=== PATIENT | female | born 1970 | race Caucasian/White ===

== ENCOUNTER → 2016-09-18 | Outpatient (CLI) | payer BC | LOC: OD 15:02 | PROVIDERS: ATTEND Student in an Organized Health Care Education/Training Program | DX: M54.5 Low back pain (principal) | CPT/HCPCS: 72110 ==

== ENCOUNTER → 2017-05-06 | Outpatient (CLI) | payer BC ==
--- NOTE | 2017-05-06 14:45 | RADIOLOGY REPORT (SQ) ---
EXAM DESCRIPTION: MRI LUMBAR SPINE WITHOUT COMPLETED DATE/TIME: 05/06/2017 9:40 am REASON FOR STUDY: LOW BACK PAIN (M54.5) M54.5 LOW BACK PAIN COMPARISON: None. TECHNIQUE: Sagittal and Axial imaging includes T1, T2, STIR and gradient echo sequences. Coronal T2/ HASTE imaging. LIMITATIONS: None. FINDINGS: VISUALIZED UPPER ABDOMEN: Limited evaluation. No acute or suspicious findings suggested. SEGMENTATION: No transitional anatomy. The lowest well-developed disc space is labeled L5-S1. ALIGNMENT: Anatomic. VERTEBRAE: Intact. BONE MARROW: Normal. No marrow replacement or reactive changes. DISC SIGNAL: Normal. No significant abnormal signal or loss of height. POSTERIOR ELEMENTS: Generally intact. No pars defect evident. HARDWARE: None in the spine. CORD AND CONUS: Normal in size and signal intensity. Conus at the appropriate level. SOFT TISSUES: No aortic aneurysm seen. No bulky retroperitoneal adenopathy or mass. No paraspinal mas s or fluid. L1-L2: No significant spinal stenosis or exit foraminal stenosis. L2-L3: No significant spinal stenosis or exit foraminal stenosis. L3-L4: No significant spinal stenosis or exit foraminal stenosis. L4-L5: No significant spinal stenosis or exit foraminal stenosis. L5-S1: No significant spinal stenosis or exit foraminal stenosis. LOWER THORACIC: Incompletely imaged. No stenosis seen. SACRUM: Visualized upper sacrum intact. OTHER: No other significant findings. IMPRESSION: NORMAL MRI LUMBAR SPINE. TECHNICAL DOCUMENTATION: JOB ID: [id number] [employer]- All Rights Reserved
== END ==
LOC: RAD 08:58
PROVIDERS: ATTEND Student in an Organized Health Care Education/Training Program
DX: M54.5 Low back pain (principal)
CPT/HCPCS: 72148

== ENCOUNTER → 2017-06-18 | Outpatient (CLI) | payer BC ==
--- NOTE | 2017-06-18 08:59 | RADIOLOGY REPORT (SQ) ---
EXAM DESCRIPTION: MRI RT UPPER JOINT WITHOUT COMPLETED DATE/TIME: 06/18/2017 8:06 am REASON FOR STUDY: LATERAL EPICONDYLITIS, RIGHT ELBOW (M77.11) M77.11 LATERAL EPICONDYLITIS, RIGHT E LBOW COMPARISON: None. TECHNIQUE: Right elbow images acquired and stored on PACS. Multiplanar images to include fat sensit florecita sequences as T1, fluid sensitive sequences as T2/STIR, cartilage sensitive sequences as FSPD, and gradient echo sequences. LIMITATIONS: None. FINDINGS: BONE MARROW: Old avulsion fracture of the coronoid process. No marrow edema. JOINT EFFUSION: None noted. No loose bodies. ARTICULAR SURFACES: Normal. MEDIAL COLLATERAL LIGAMENT COMPLEX: Intact without edema or tear. MEDIAL EPICONDYLE AND COMMON FLEXOR TENDON: No tendinopathy. No partial or full-thickness tear. LATERAL COLLATERAL LIGAMENT: Partial tear of the humeral attachment of the radial collateral ligament . LATERAL EPICONDYLE AND COMMON EXTENSOR TENDON: Increased signal in the origin of the common extensor tendon. LATERAL ULNAR COLLATERAL LIGAMENT: Intact without evidence for tear. BICEPS TENDON: Intact. No partial or full-thickness tendon tear. No muscle edema. TRICEPS TENDON: Intact. ULNAR NERVE: Well-visualized without edema or encroachment. ADJACENT SOFT TISSUES: No masses or edema. OTHER: No other significant finding. IMPRESSION: 1. Tendinopathy origin of the common extensor tendon. Partial tear of the humeral attachment of the radial collateral ligament. 2. Old avulsion fracture of the coronoid process. TECHNICAL DOCUMENTATION: JOB ID: [id number] [employer]- All Rights Reserved
== END ==
LOC: RAD 07:23
PROVIDERS: ATTEND Physician Assistant
DX: M77.11 Lateral epicondylitis, right elbow (principal)

== ENCOUNTER → 2017-08-27 | Outpatient (CLI) | payer BC ==
--- NOTE | 2017-08-28 08:34 | RADIOLOGY REPORT (SQ) ---
EXAM DESCRIPTION: MRI RT LOWER EXTREMITY WITHOUT COMPLETED DATE/TIME: 08/27/2017 6:53 pm REASON FOR STUDY: PAIN IN RIGHT FOOT M79.671 PAIN IN RIGHT FOOT COMPARISON: None. TECHNIQUE: T1-weighted, T2-weighted, and gradient echo noncontrast multiplanar imaging of the right foot. LIMITATIONS: None. FINDINGS: MARROW SIGNAL: No marrow signal alteration. No occult fracture. No evidence for osteo ne crosis. JOINT EFFUSION: No significant effusions. PLANTAR FASCIA: Normal as visualized. TARSOMETATARSAL AND TOE ARTICULATIONS: Anatomic. Mild degenerative changes first metatarsal phalange al joint. INTERMETATARSAL SPACES AND PLANTAR PLATES: Intact. No soft tissue mass to suggest a neuroma. SOFT TISSUES: Mild intermediate T1 signal in the fat pad underlying the 5th MP joint, likely scar nelson suring up to 1.8 cm transverse dimension. This does not look like fluid or edema. No adjacent bone pathology. There is also a mild 1.4 cm hyperintense T2 lobulated mass along the base of the 5th meta tarsal dorsally. Probably a tiny ganglion. OTHER: No other significant finding. IMPRESSION: 1. No fracture or significant marrow edema. No subluxation or dislocation. 2. Soft ti ssue findings as above. TECHNICAL DOCUMENTATION: JOB ID: [id number] [employer]- All Rights Reserved
== END ==
LOC: RAD 18:04
PROVIDERS: ATTEND Podiatrist Foot Surgery
DX: M79.671 Pain in right foot (principal)

== ENCOUNTER → 2017-10-28 | Outpatient (CLI) | payer BC, OTHER ==
--- NOTE | 2017-10-30 07:17 | RADIOLOGY REPORT (SQ) ---
EXAM DESCRIPTION: MRI LT UPPER JOINT WITHOUT COMPLETED DATE/TIME: 10/28/2017 6:44 pm REASON FOR STUDY: M77.12 LATERAL EPICONDYLITIS, LEFT ELBOW M77.12 LATERAL EPICONDYLITIS, LEFT ELBOW COMPARISON: None. TECHNIQUE: Left elbow images acquired and stored on PACS. Multiplanar images to include fat sensitiv e sequences as T1, fluid sensitive sequences as T2/STIR, cartilage sensitive sequences as FSPD, and g radient echo sequences. LIMITATIONS: None. FINDINGS: BONE MARROW: No alteration of signal to suggest marrow replacement or edema. No occult fra cture. No large osteophytes. JOINT EFFUSION: Small effusion without loose bodies. ARTICULAR SURFACES: Relatively maintained. Very subtle subchondral changes in the capitellum. This may represent minimal focal chondral loss. MEDIAL COLLATERAL LIGAMENT COMPLEX: Intact without edema or tear. MEDIAL EPICONDYLE AND COMMON FLEXOR TENDON: No tendinopathy. No partial or full-thickness tear. LATERAL COLLATERAL LIGAMENT: Partial tear. This looks relatively high-grade. LATERAL EPICONDYLE AND COMMON EXTENSOR TENDON: Partial tear along the origin of the common extensor t endon. LATERAL ULNAR COLLATERAL LIGAMENT: Relatively intact. BICEPS TENDON: Intact. No partial or full-thickness tendon tear. No muscle edema. TRICEPS TENDON: Intact. ULNAR NERVE: Mildly thickened appearance, hyperintense signal with loss of the perineural fat in the region of the cubital tunnel. Note is made of mild spurring in the adjacent olecranon with minimal m arrow edema. ADJACENT SOFT TISSUES: No masses or edema. OTHER: No other significant finding. IMPRESSION: 1. Significant lateral epicondylitis, partial tear of the lateral collateral ligament a nd origin of the common extensor tendon. The lateral ulnar collateral ligament looks relatively main tained. 2. Findings worrisome for ulnar neuropathy. TECHNICAL DOCUMENTATION: JOB ID: [id number] [employer]- All Rights Reserved Reading location - IP/workstation name: [email or web address]
== END ==
LOC: RAD 16:11
PROVIDERS: ATTEND Orthopaedic Surgery
DX: M77.12 Lateral epicondylitis, left elbow (principal)

== ENCOUNTER 2018-02-26 06:41 | Day surgery (SDC) | payer BC, OTHER ==
[~2018-02-26 06:41] MED LIST: CEFAZOLIN 1 GM/D5W RTU 1 GM/50 ML RTUPB IV PRN
[2018-02-26] MEDS ORDERED: LIDOCAINE 2% INJ (20 MG/ML) 20 ML MDV ONE (07:17)
[2018-02-26] MEDS ORDERED: NORMAL SALINE INJ/PF 0.9% 10 ML SDV ONE (07:18)
[2018-02-26] MEDS ORDERED: POLYMYXIN B SULFATE INJ 500000 UNIT VIAL ONE (07:18)
[2018-02-26] MEDS ORDERED: BUPIVACAINE HCL 0.5 % INJ/PF 30 ML SDV ONE (07:18)
[2018-02-26] MEDS ORDERED: BACITRACIN INJ 50,000 UNIT VIAL ONE (07:18)
[2018-02-26] MEDS ORDERED: MIDAZOLAM 2 MG/2 ML INJ ONE (07:21)
[2018-02-26] MEDS ORDERED: FENTANYL CITRATE INJ/PF 100 MCG/2 ML AMPUL ONE (07:21)
[2018-02-26] MEDS ORDERED: DEXMEDETOMIDINE INJ 80 MCG/20 ML VIAL IV ONE (07:22)
[2018-02-26] MEDS ORDERED: PROPOFOL INJ 200 MG/20 ML VIAL IV ONE (07:22)
[2018-02-26] MEDS ORDERED: LIDOCAINE 0.5% INJ-PF (5 MG/ML) 50 ML SDV ONE (07:23)
[2018-02-26] MEDS: BUPIVACAINE INJ/PF LIPOSOME/PF 266 MG/20 ML SDV ONE ×2 (08:48→08:55)
--- NOTE | 2018-02-26 10:00 | SURGICARE DISCHARGE SUMMARY E ---
[facility] Discharge Summary NAME: BRYSON WALKER AGE: 47Y ADMITTED: 02/26/2018 DISCHARGED: 02/26/2018 PROCEDURE: Correction of bunion via osteotomy, internal fixation right foot. POSTOPERATIVE DIAGNOSIS: HALLUX ABDUCTOVALGUS RIGHT FOOT. SURGEON: Leilani Gaxiola DPM FINAL INSPECTION SUPERVISOR: Toi De Oliveira DPM HOSPITAL COURSE: The patient was admitted to [facility] with a chief complaint of a painful bunion on her right foot. She has undergone conservative treatment without any cessation of her symptoms and the patient desired to have the problem surgically corrected. The underwent the above surgical procedure without any complications and was transferred to the recovery room. She was discharged with a surgical shoe, ice pack, postoperative instructions including no weightbearing on the surgical foot for the first week. Postoperative prescription for cephalexin 500 mg #4. She was given a followup appointment in the doctor's office in 1 week. The patient was discharged from [facility]. DICTATING PHYSICIAN: GABINO GAXIOLA D.P.M. [id number] PHY#: [id number] ID: [id number] JOB#: [id number] ACCT: [id number] cc:GABINO GAXIOLA DPM >
--- NOTE | 2018-02-26 10:15 | SURGICARE OPERATIVE REPORT E ---
[facility] NAME: BRYSON WALKER AGE: 47Y DATE OF SURGERY: 02/26/2018 ROOM: PREOPERATIVE DIAGNOSIS: HALLUX ABDUCTOVALGUS, RIGHT FOOT. POSTOPERATIVE DIAGNOSIS: HALLUX ABDUCTOVALGUS, RIGHT FOOT. OPERATION: Correction of bunion by Chinedu osteotomy with internal fixation, right foot. SURGEON: GABINO HARDEN DPM CUTTER GRINDER OPERATOR: Toi De Oliveira DPM PROCEDURE: Following the induction of IV regional local anesthesia, the right foot and leg were prepped and draped in a sterile manner. A pneumatic tourniquet was placed around the right ankle and inflated to 250 mmHg, after exsanguination of the limb via Esmarch bandage. The following surgical procedures were then performed: Correction of bunion by Chinedu osteotomy with internal fixation, right foot. Attention was directed to the dorsal aspect of the first metatarsophalangeal joint of the right foot, where an approximately 5-cm dorsolinear incision was made. The incision was deepened via sharp dissection. All bleeders were clamped and Bovied at the site for the purposes of hemostasis. A capsular incision was made in the same manner as the original skin incision and was made medial to the extensor hallucis longus tendon. The capsule was then reflected medially and laterally from the bone. Attention was then directed to the first interspace, where utilizing blunt dissection, the transverse adductor tendon was identified and sharply incised with tenotomy scissors. Attention was then directed back to the medial aspect of the first metatarsal head, utilizing a sharp sagittal saw, hypertrophied medial eminence was osteotomized parallel to the long axis of the bone and removed in total from the wound. An Chinedu osteotomy was then performed to the medial aspect of the first metatarsal head. This was done via a Mangstor sagittal saw. There was 2 wings, one distal, one dorsal, and one plantar. Both had 60 degrees, the apex being distal. The plantar wing was a short wing, while the dorsal wing was a longer wing. The capital fragment was then shifted laterally on the first metatarsal, approximately 5-mm. The osteotomy was then temporarily fixated with a 0.45 Guidewire. An x-ray was taken to make sure that the wire was in a good position and that the first metatarsophalangeal joint was now in a more anatomically corrected position. A reamer measure was sent through down the Guidewire and the hole was reamed to accept the head of the screw and was noted a 22-mm 3.0 cancellous screw would be needed. The distal aspect of the osteotomy was then drilled utilizing a 2.0-mm drill bit. The 22-mm 3.0 cancellous screw was slid down the guidewire and tightened down until the osteotomy was safely fixated. The guidewire was then removed. Another x-ray was taken to make sure that the screw was long enough and in a good position and the first metatarsophalangeal joint was still in an anatomically correct position. The redundant bone in the medial aspect of the first metatarsal head was then osteotomized parallel to the long axis of the bone, utilizing a Mangstor sagittal saw. The site was then rasped smooth utilizing a Mangstor cross-cut rasp. The area was then flushed with copious amounts of an antibacterial saline solution. Bone wax was then applied to the medial aspect of the first metatarsal head. The capsule was then coapted and maintained utilizing simple interrupted sutures of 3-0 Vicryl. The extensor hallucis longus tendon was then lengthened via a Z-plasty tendon lengthening and was sutured with a running locking stitch of 3.0 FiberWire. The tendon was then tacked medially utilizing simple interrupted sutures of 3-0 Vicryl. The subcutaneous tissue is then coapted and maintained utilizing simple interrupted sutures of 4-0 Vicryl. Then 20 mL of EXPAREL was then injected along the subcutaneous along the length of the incision and around the surgical site. The skin was then coapted and maintained utilizing a running subcuticular suture of 5-0 Vicryl. The skin was then cleansed utilizing an alcohol foam. Then Benzoin applied along the length of the incision and 1/8-inch Steri-Strips were applied along the length of the incision. A dry sterile dressing was then applied, consisting of Colin silk, 4 x 4's, Conform, Kerlix and Coban. The pneumatic tourniquet was released. It was noted that all digits were warm and viable. The patient was then transferred to the recovery room DICTATING PHYSICIAN: GABINO HARDEN D.P.M. [id number] PHY#: [id number] ID: [id number] JOB#: [id number] ACCT: [id number] cc:GABINO HARDEN DPM >
--- NOTE | 2018-02-26 11:57 | RADIOLOGY REPORT (SQ) ---
EXAM DESCRIPTION: NO CHG FLUORO; FOOT RIGHT 2 VIEWS COMPLETED DATE/TIME: 02/26/2018 11:40 am REASON FOR STUDY: RT FOOT BUNIONECTOMY M20.11 HALLUX VALGUS (ACQUIRED), RIGHT FOOT COMPARISON: None. FLUOROSCOPY TIME: 8 seconds 2 images saved to PACS. TECHNIQUE: Intra-operative images acquired during surgical procedure to evaluate progress. NUMBER OF IMAGES: 2 LIMITATIONS: None. FINDINGS: 2 images of great toe (not labeled as to left or right). Patient undergoing bunionectomy and corrective osteotomy with single screw in place. Please correlate with operative note. IMPRESSION: IMAGE(S) OBTAINED DURING PROCEDURE. COMMENT: Quality ID [id number]: Final reports for procedures using fluoroscopy that document radiation exp osure indices, or exposure time and number of fluorographic images (if radiation exposure indices are not available) Please consult full operative report of the attending physician for description of the procedure. TECHNICAL DOCUMENTATION: JOB ID: [id number] [employer]- All Rights Reserved Reading location - IP/workstation name: [email or web address]
--- NOTE | 2018-02-26 11:57 | RADIOLOGY REPORT (SQ) ---
EXAM DESCRIPTION: NO CHG FLUORO; FOOT RIGHT 2 VIEWS COMPLETED DATE/TIME: 02/26/2018 11:40 am REASON FOR STUDY: RT FOOT BUNIONECTOMY M20.11 HALLUX VALGUS (ACQUIRED), RIGHT FOOT COMPARISON: None. FLUOROSCOPY TIME: 8 seconds 2 images saved to PACS. TECHNIQUE: Intra-operative images acquired during surgical procedure to evaluate progress. NUMBER OF IMAGES: 2 LIMITATIONS: None. FINDINGS: 2 images of great toe (not labeled as to left or right). Patient undergoing bunionectomy and corrective osteotomy with single screw in place. Please correlate with operative note. IMPRESSION: IMAGE(S) OBTAINED DURING PROCEDURE. COMMENT: Quality ID [id number]: Final reports for procedures using fluoroscopy that document radiation exp osure indices, or exposure time and number of fluorographic images (if radiation exposure indices are not available) Please consult full operative report of the attending physician for description of the procedure. TECHNICAL DOCUMENTATION: JOB ID: [id number] [employer]- All Rights Reserved Reading location - IP/workstation name: [email or web address]
== END 2018-02-26 10:19 | disposition home or self-care (01) ==
LOC: SC 06:41
PROVIDERS: ATTEND Podiatrist Foot Surgery
PROC: 0QBN0ZZ Excision of Right Metatarsal, Open Approach (ICD-10-PCS; 2018-02-26)
PROC: 0QSN04Z Reposition Right Metatarsal with Internal Fixation Device, Open Approach (ICD-10-PCS; principal; 2018-02-26 07:30)
DX: M20.11 Hallux valgus (acquired), right foot (principal); F32.9 Major depressive disorder, single episode, unspecified; J45.909 Unspecified asthma, uncomplicated; Z87.891 Personal history of nicotine dependence
CPT/HCPCS: 73620; 28296; C1713; C1769; J2250; J3490 ×7; J0690; J3010; J2704; C9290; 01480

== ENCOUNTER → 2018-12-17 | Outpatient (CLI) | payer BC ==
--- NOTE | 2018-12-17 18:07 | RADIOLOGY REPORT (SQ) ---
EXAM DESCRIPTION: MRI LUMBAR SPINE WITHOUT COMPLETED DATE/TIME: 12/17/2018 5:35 pm REASON FOR STUDY: M51.36 OTHER INTERVERTEBRAL DISC DEGENERATION, LUMBAR REGION M51.36 OTHER INTERVE RTEBRAL DISC DEGENERATION, LUMBAR REGION COMPARISON: None. TECHNIQUE: Sagittal and Axial imaging includes T1, T2, STIR and gradient echo sequences. Coronal T2/ HASTE imaging. LIMITATIONS: Up to moderately limited by motion artifact. FINDINGS: VISUALIZED UPPER ABDOMEN: Limited evaluation. No acute or suspicious findings suggested. SEGMENTATION: No transitional anatomy. The lowest well-developed disc space is labeled L5-S1. ALIGNMENT: Anatomic. VERTEBRAE: Intact. BONE MARROW: Normal. No marrow replacement or reactive changes. DISC SIGNAL: Normal. No significant abnormal signal or loss of height. POSTERIOR ELEMENTS: Generally intact. No pars defect evident. HARDWARE: None in the spine. CORD AND CONUS: Normal in size and signal intensity. Conus at the appropriate level. SOFT TISSUES: No aortic aneurysm seen. No bulky retroperitoneal adenopathy or mass. No paraspinal mas s or fluid. L1-L2: No significant spinal stenosis or exit foraminal stenosis. L2-L3: No significant spinal stenosis or exit foraminal stenosis. L3-L4: No significant spinal stenosis or exit foraminal stenosis. L4-L5: No significant spinal stenosis or exit foraminal stenosis. L5-S1: No significant spinal stenosis or exit foraminal stenosis. LOWER THORACIC: Incompletely imaged. No stenosis seen. SACRUM: Visualized upper sacrum intact. OTHER: No other significant findings. IMPRESSION: 1. Limiting motion. 2. No gross spinal malalignment, fracture or bone lesion or significant spinal stenosis detected. TECHNICAL DOCUMENTATION: JOB ID: [id number]- All Rights Reserved Reading location - IP/workstation name: [email or web address]
== END ==
LOC: RAD 16:34
PROVIDERS: ATTEND Pain Medicine Interventional Pain Medicine
DX: M51.36 Other intervertebral disc degeneration, lumbar region (principal)
CPT/HCPCS: 72148

== ENCOUNTER → 2019-06-25 | Outpatient (CLI) | payer BC ==
--- NOTE | 2019-06-25 14:07 | RADIOLOGY REPORT (SQ) ---
EXAM DESCRIPTION: MRI LUMBAR SPINE WITHOUT COMPLETED DATE/TIME: 06/25/2019 10:49 am REASON FOR STUDY: UNSPECIFIED INFLAMMATORY SPONDYLOPATHY, LUMBAR REGION M46.96 UNSPECIFIED INFLAMMA TORY SPONDYLOPATHY, LUMBAR REGION COMPARISON: None. TECHNIQUE: Sagittal and Axial imaging includes T1, T2, STIR and gradient echo sequences. Coronal T2/ HASTE imaging. LIMITATIONS: None. FINDINGS: VISUALIZED UPPER ABDOMEN: Limited evaluation. No acute or suspicious findings suggested. SEGMENTATION: No transitional anatomy. The lowest well-developed disc space is labeled L5-S1. ALIGNMENT: Anatomic. VERTEBRAE: Intact. BONE MARROW: Normal. No marrow replacement or reactive changes. DISC SIGNAL: Normal. No significant abnormal signal or loss of height. POSTERIOR ELEMENTS: Generally intact. No pars defect evident. HARDWARE: None in the spine. CORD AND CONUS: Normal in size and signal intensity. Conus at the L1 level. SOFT TISSUES: No aortic aneurysm seen. No bulky retroperitoneal adenopathy or mass. No paraspinal mas s or fluid. L1-L2: No significant spinal stenosis or exit foraminal stenosis. L2-L3: No significant spinal stenosis or exit foraminal stenosis. L3-L4: Circumferential disc bulging. No central canal or foraminal stenosis. L4-L5: No significant spinal stenosis or exit foraminal stenosis. L5-S1: No significant spinal stenosis or exit foraminal stenosis. LOWER THORACIC: Incompletely imaged. No stenosis seen. SACRUM: Visualized upper sacrum intact. OTHER: No other significant findings. IMPRESSION: There is circumferential disc bulging at L3-4 with no significant central canal or malcolm inal stenosis. TECHNICAL DOCUMENTATION: JOB ID: [id number] [employer]- All Rights Reserved Reading location - IP/workstation name: [email or web address]
== END ==
LOC: RAD 10:02
PROVIDERS: ATTEND Pain Medicine Interventional Pain Medicine
DX: M46.96 Unspecified inflammatory spondylopathy, lumbar region (principal); M51.86 Other intervertebral disc disorders, lumbar region
CPT/HCPCS: 72148

== ENCOUNTER 2020-01-05 11:35 | Emergency (ER) | payer BC ==
[2020-01-05 12:01] LABS: APPEARANCE,URINE CLEAR; BILIRUBIN,URINE NEGATIVE (NEGATIVE); COLOR,URINE STRAW; GLUCOSE, URINE NEGATIVE (NEGATIVE); KETONES,URINE NEGATIVE (NEGATIVE); LEUKOCYTE ESTERASE,URINE NEGATIVE (NEGATIVE); NITRITE,URINE NEGATIVE (NEGATIVE); PROTEIN,URINE NEGATIVE (NEGATIVE); URINE SPECIFIC GRAVITY 1.006; UROBILINOGEN,URINE NEGATIVE mg/dL (<2.0)
[2020-01-05 12:12] LABS: ABSOLUTE BASOPHILS # (AUTO) 0.1 10^3/uL (0.0-0.2); ABSOLUTE EOSINOPHILS # (AUTO) 0.5 10^3/uL (0.0-0.6); ABSOLUTE LYMPHOCYTES (AUTO) 2.9 10^3/uL (0.5-4.7); ABSOLUTE NEUT (AUTO) 5.4 10^3/uL (1.7-8.2); BASOPHILS % (AUTO) 0.7 % (0-2); EOSINOPHILS % (AUTO) 4.7 % (0-6); HEMATOCRIT 34.8 % (36.0-47.0); LYMPHOCYTES % (AUTO) 29.3 % (13-45); MEAN CORPUSCULAR HEMOGLOBIN 31.8 pg (27.0-33.4); MEAN CORPUSCULAR HGB CONC 34.4 g/dL (32.0-36.0); MEAN CORPUSCULAR VOLUME 93 fl (80-97); MONOCYTES % (AUTO) 10.6 % (3-13); PLATELET COUNT 423 10^3/uL (150-450); RED BLOOD COUNT 3.76 10^6/uL (3.72-5.28); RED CELL DISTRIBUTION WIDTH 15.4 % (11.5-14.0); SEGMENTED NEUTROPHILS % (AUTO) 54.7 % (42-78); TOTAL CELLS COUNTED % (AUTO) 100 %; WHITE BLOOD COUNT 9.8 10^3/uL (4.0-10.5)
--- NOTE | 2020-01-05 12:12 | ER Document Report ---
ED Psych Disorder / Suicide - General Mode of Arrival: Ambulatory Information source: Patient TRAVEL OUTSIDE OF THE [place] IN LAST 30 DAYS: No <JILL HINOJOSA - Last Filed: 01/05/20 14:46> <FISH WILHELM - Last Filed: 01/05/20 15:28> <RONYUDITH Wong - Last Filed: 01/05/20 22:32> - General Chief Complaint: Psych Problem Stated Complaint: IVC Time Seen by Provider: 01/05/20 11:43 Primary Care Provider: [facility] [Outside] - Follow up as needed [facility] [Outside] - 01/06/20 8:00 am (Can walk in Saturday-Saturday 8:00AM-4:30 PM. Recommendation to walk in first thing tomorrow (01/06/2020) morning to restablish services.) [facility] [Outside] - Follow up as needed ELKIN HUYNH DO [Primary Care Provider] - Follow up as needed Notes: 49-year-old woman presents to the emergency department history of involuntarily committed by her brother because of his concerns regarding her patient denies suicidal homicidal ideation. She states that he has IVC'd her in the past and he has psychiatric illness. She feels that this IVC was done in an attempt to control her, states he is living in her home. (JILL HINOJOSA) - Related Data Allergies/Adverse Reactions: No Known Allergies Allergy (Verified 11/08/15 11:58) Past Medical History - Social History Family History: Reviewed & Not Pertinent - Past Medical History Cardiac Medical History: Denies: Hx Heart Attack, Hx Hypertension Pulmonary Medical History: Reports: Hx Bronchitis Denies: Hx Asthma Neurological Medical History: Denies: Hx Cerebrovascular Accident, Hx Seizures GI Medical History: Denies: Hx Hepatitis, Hx Hiatal Hernia, Hx Ulcer Infectious Medical History: Denies: Hx Hepatitis Past Surgical History: Reports: Hx Orthopedic Surgery - Laparoscopicay of the BL knee. Denies: Hx Hysterectomy, Hx Mastectomy, Hx Open Heart Surgery, Hx Pacemaker - Immunizations Immunizations up to date: Yes Hx Diphtheria, Pertussis, Tetanus Vaccination: Yes <JILL HINOJOSA - Last Filed: 01/05/20 14:46> Review of Systems <JILL HINOJOSA - Last Filed: 01/05/20 14:46> - Review of Systems Notes: Constitutional: Negative for fever. HENT: Negative for sore throat. Eyes: Negative for visual changes. Cardiovascular: Negative for chest pain. Respiratory: Negative for shortness of breath. Gastrointestinal: Negative for abdominal pain, vomiting or diarrhea. Genitourinary: Negative for dysuria. Musculoskeletal: Negative for back pain. Skin: Negative for rash. Neurological: Negative for headaches, weakness or numbness. 10 point ROS negative except as marked above and in HPI. (JILL HINOJOSA) Physical Exam <JILL HINOJOSA - Last Filed: 01/05/20 14:46> - Vital signs Vitals: Temp Pulse Resp BP Pulse Ox 98.2 F 89 16 134/79 H 99 01/05/20 11:58 01/05/20 11:58 01/05/20 11:58 01/05/20 11:58 01/05/20 11:58 - Notes Notes: PHYSICAL EXAMINATION: Physical Exam: General: Well-nourished well-developed in no acute distress HEENT: NC/AT, pupils equal round and reactive to light, MM moist,nares clear, oropharynx clear, airway patent Neck: supple, no adenopathy, no masses. Good range of motion Lungs: clear, no wheezing, no rales no rhonchi CVS: Regular rate and rhythm no murmur gallop or rub Abdomen: Soft, active, nontender, no masses, no hepatosplenomegaly Ext: No edema, clubbing or cyanosis. Neuro: Alert and responsive, moving all 4 extremities on command, cranial nerves intact, no focal findings Skin: Intact no open lesions, no rash PSYCH: Normal mood, normal affect. (JILL HINOJOSA) Course - Laboratory Result Diagrams: 01/05/20 12:00 01/05/20 12:00 - EKG Interpretation by [facility] EKG shows normal: Sinus rhythm - Normal sinus rhythm with a rate of 82, LVH. <JILL HINOJOSA - Last Filed: 01/05/20 14:46> - Laboratory Result Diagrams: 01/05/20 12:00 01/05/20 12:00 <FISH WILHELM - Last Filed: 01/05/20 15:28> - Laboratory Result Diagrams: 01/05/20 12:00 01/05/20 12:00 <YUDITH VELASQUEZ - Last Filed: 01/05/20 22:32> - Vital Signs Vital signs: Temp Pulse Resp BP Pulse Ox 97.8 F 72 20 137/83 H 100 01/05/20 16:55 01/05/20 16:55 01/05/20 16:55 01/05/20 16:55 01/05/20 16:55 - Laboratory Laboratory results interpreted by me: 01/05/20 01/05/20 01/05/20 11:45 12:00 12:00 Hct 34.8 L RDW 15.4 H Urine Blood SMALL H Salicylates < 1.0 L Acetaminophen < 10 L 01/05/20 14:13 I have reviewed laboratory data and used this information for the treatment decisions regarding the patient. (JILL HINOJOSA) Discharge <JILL HINOJOSA - Last Filed: 01/05/20 14:46> <FISH WILHELM - Last Filed: 01/05/20 15:28> <YUDITH VELASQUEZ - Last Filed: 01/05/20 22:32> - Discharge Clinical Impression: Family discord, Involuntary commitment Condition: Stable Disposition: HOME, SELF-CARE Additional Instructions: You have been evaluated by both medical and behavioral health teams for Involuntary Commitment you came in on from the [employer] [facility], history of Bipolar, noncompliant with treatment and family discord. You have been deemed appropriate for discharge. While in the emergency department you received the following services/or had available: Medical screening and assessment, nursing services, dietary services, pharmacological services, one-on-one counseling and/or psychotherapy, environmental services, and continuous observation by a patient health safety coordinator. Medications are helpful when it comes to mood instability, depression, anxiety and sleep (these are all issues individuals in recovery often have as well). You are recommended to re establish outpatient mental health services at [facility] for ongoing care and treatment via med ication management, group therapy and individual therapy. Bipolar Disorder (cam be inherited or individuals in recovery often go through many of these symptoms) Bipolar disorder is also called manic-depressive disorder. Depression alternates with brain hyperactivity called david. Each phase lasts from several days to a few weeks. We don't know exactly what causes bipolar disorder, but it's treatable. During the "manic phase," you may feel elated and energetic. You may have racing thoughts, rapid speech, increased activity, and grandiose ideas. During this time, you may not realize how poor your judgment is. Inappropriate spending, drug abuse, excessive alcohol use, marriage problems, and irresponsible sexual behavior are common during the manic phase. During the "depressive phase," you might feel depressed, guilty, worthless, fatigued, and unable to concentrate. You might have thoughts of suicide. Good treatments are available for bipolar disorder. [place] is a classic drug for bipolar disorder, and is still often useful. If the manic phase is very mild, an antidepressant alone can be prescribed. If the manic phase is very severe, an antipsychotic medicine (such as Haldol) may be needed. The treatment must be matched to your symptoms, so it's important to work closely with your psychiatric care provider. Contact your physician, the hospital emergency center, crisis line, or your counsellor if you are losing control or having self-destructive thoughts. Follow Up: You are recommended to walk in to [facility] (can walk in Saturday-Saturday 8:00AM-4:30PM) first thing tomorrow (01/06/2020) morning to res establish outpatient mental health services. If your symptoms persist or worsen contact your physician immediately, return to the emergency department at any time or utilize mobile crisis. Referrals: ELKIN HUYNH DO [Primary Care Provider] - Follow up as needed [facility] [Outside] - Follow up as needed [facility] [Outside] - Follow up as needed [facility] [Outside] - 01/06/20 8:00 am (Can walk in Saturday-Saturday 8:00AM-4:30 PM. Recommendation to walk in first thing tomorrow (01/06/2020) morning to restablish services.)
[2020-01-05 12:16] LABS: URINE AMPHETAMINES SCREEN NEGATIVE; URINE BARBITURATES SCREEN NEGATIVE; URINE BENZODIAZEPINES SCREEN NEGATIVE; URINE COCAINE SCREEN NEGATIVE; URINE MARIJUANA (THC) SCREEN NEGATIVE; URINE METHADONE SCREEN NEGATIVE; URINE PHENCYCLIDINE SCREEN NEGATIVE
[2020-01-05 12:35] LABS: ALBUMIN 4.4 g/dL (3.5-5.0); ALKALINE PHOSPHATASE 70 U/L (38-126); ANION GAP 8 (5-19); ASPARTATE AMINO TRANSFERASE 23 U/L (14-36); BILIRUBIN,TOTAL 0.2 mg/dL (0.2-1.3); BLOOD UREA NITROGEN 15 mg/dL (7-20); CALCIUM 10.2 mg/dL (8.4-10.2); CARBON DIOXIDE 30 mmol/L (22-30); CHLORIDE 102 mmol/L (98-107); GLUCOSE 89 mg/dL (75-110); POTASSIUM 4.2 mmol/L (3.6-5.0); TOTAL PROTEIN 7.3 g/dL (6.3-8.2)
[2020-01-05 12:41] LABS: ACETAMINOPHEN < 10 ug/mL (10-30); ALCOHOL < 10 mg/dL (NONE DETECTED); SALICYLATE < 1.0 mg/dL (2.0-20.0)
[2020-01-05 16:56] VITALS: BP 137/83
--- NOTE | 2020-01-06 07:50 | EKG REPORT ---
SEVERITY:- ABNORMAL ECG - SINUS RHYTHM PROBABLE LEFT VENTRICULAR HYPERTROPHY : Confirmed by: Silvia Lynn MD 06-Jan-2020 07:50:06
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
== END 2020-01-05 17:10 | disposition home or self-care (01) ==
LOC: ER 11:35
DX: Z63.8 Other specified problems related to primary support group (principal)
CPT/HCPCS: 36415; 80053; 80307; 81001; 85025; 93005; 93010; 99284